=== PATIENT | female | born 2000 | race American Indian/Alaskan Native ===

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

== ENCOUNTER 2019-03-04 22:43 | Emergency (ER) | payer SELFPAY ==
[2019-03-04] MEDS ORDERED: IPRATROPIUM/ALBUTEROL SULFATE 3 ML AMPUL.NEB IH ONE (22:58)
[2019-03-04] MEDS ORDERED: ALBUTEROL 2.5 MG/3 ML NEBU IH ONE (23:12)
[2019-03-04] MEDS ORDERED: predniSONE 20 MG TAB PO ONE (23:12)
[2019-03-04 23:51] LABS: Basophils % (Auto) 0.4 % (0.0-1.8); Eosinophils # (Auto) 0.6 K/mm3 (0.0-0.4); Eosinophils % (Auto) 5.8 % (0.0-4.3); Hematocrit 40.7 % (30.3-42.9); Hemoglobin 13.6 gm/dl (10.1-14.3); Lymphocytes # (Auto) 2.3 K/mm3 (1.2-5.4); Mean Corpuscular HGB Conc 34 % (30-34); Mean Corpuscular Volume 85 fl (79-97); Monocytes # (Auto) 0.7 K/mm3 (0.0-0.8); Monocytes % (Auto) 6.7 % (0.0-7.3); Platelet Count 403 K/mm3 (140-440); Red Blood Count 4.82 M/mm3 (3.65-5.03); Red Cell Distribution Width 16.1 % (13.2-15.2)
--- NOTE | 2019-03-04 23:56 | XRay Report ---
CHEST 1 VIEW 2316 INDICATION / CLINICAL INFORMATION: SOB. COMPARISON: 12/06/2018 FINDINGS: SUPPORT DEVICES: None HEART / MEDIASTINUM: No significant abnormality. LUNGS / PLEURA: Density laterally in the lung bases is related to overlying soft tissue. No areas of consolidation are seen. No pneumothorax. ADDITIONAL FINDINGS: No significant additional findings. IMPRESSION: No significant acute abnormality Signer Name: Shaun Tse MD Signed: 03/04/2019 11:51 PM Workstation Name: [id number]
[2019-03-05 00:11] LABS: BUN/Creatinine Ratio 10; Blood Urea Nitrogen 7 mg/dL (7-17); Calcium 9.9 mg/dL (8.4-10.2); Hemolysis Index 7
[2019-03-05] MEDS ORDERED: ALBUTEROL 2.5 MG/3 ML NEBU IH ONE (01:46)
[2019-03-05 02:33] VITALS: BP 144/71
--- NOTE | 2019-03-05 02:37 | Emergency Department Report ---
HPI - General Chief Complaint: Adult Asthma Time Seen by Provider: 03/04/19 23:01 - HPI HPI: 19-year-old -[place] female presents to the emergency department from home with a complaint of shortness of breath, wheezing, coughing that she says is an asthma exacerbation. Overall, the patient says that this has been going on for the past few months since she moved to [place] in October. She does not have any primary care physician. She does not have any albuterol inhaler, nebulizer or any medications for treatment. She denies being a tobacco smoker or any knee or illicit drug use. No recent travel or sick contacts at home. ED Past Medical Hx - Past Medical History Previous Medical History?: Yes Hx Asthma: Yes Additional medical history: eczema - Surgical History Past Surgical History?: No - Social History Smoking Status: Never Smoker Substance Use Type: None - Medications Home Medications: Home Medications Medication Instructions Recorded Confirmed Last Taken Type ALBUTEROL Inhaler (OR & NICU) 1 puff IH Q4-6H PRN #1 inha 11/17/18 Unknown Rx [ProAir HFA Inhaler] Budesonide/Formoterol Fumarate 10.2 gm IH DAILY #1 hfa.aer.ad 11/17/18 Unknown Rx [Symbicort 160-4.5 Mcg Inhaler] Montelukast [Singulair] 10 mg PO QPM #14 tablet 11/17/18 Unknown Rx ALBUTEROL NEB's [Proventil 0.083% 2.5 mg IH TID PRN #90 neb 12/06/18 Unknown Rx NEBS] Loratadine 10 mg PO DAILY 30 Days #30 capsule 12/06/18 Unknown Rx Prednisone [predniSONE 10 mg 10 mg PO .TAPER #1 tab.ds.pk 12/06/18 Unknown Rx (6-Day Pack, 21 Tabs)] ALBUTEROL Inhaler (OR & NICU) 2 puff IH QID PRN #1 device 03/05/19 Unknown Rx [ProAir HFA Inhaler] Benzonatate [Tessalon Perles] 100 mg PO Q8HR #30 capsule 03/05/19 Unknown Rx predniSONE [Deltasone] 20 mg PO BID #10 tab 03/05/19 Unknown Rx ED Review of Systems ROS: Stated complaint: ASTHMA, EDI Other details as noted in HPI Comment: All other systems reviewed and negative Constitutional: denies: chills, fever Eyes: denies: eye pain, vision change ENT: denies: ear pain, throat pain Respiratory: cough, shortness of breath, wheezing Cardiovascular: denies: chest pain, palpitations, edema Gastrointestinal: denies: abdominal pain, vomiting Genitourinary: denies: dysuria, discharge Musculoskeletal: denies: back pain, arthralgia Skin: denies: rash, lesions Neurological: denies: headache, weakness Physical Exam - Physical Exam Vital Signs: Vital Signs 03/04/19 03/04/19 03/04/19 22:45 22:51 23:05 Temperature 99.3 F 99.1 F Pulse Rate 117 H 112 H Pulse Rate [ Anterior] Respiratory 22 26 H Rate Respiratory Rate [Anterior] Blood Pressure 137/95 Blood Pressure 137/83 [Left] O2 Sat by Pulse 95 97 Oximetry 03/04/19 03/04/19 03/04/19 23:06 23:15 23:31 Temperature Pulse Rate 119 H 101 H Pulse Rate [ Anterior] Respiratory 21 16 Rate Respiratory Rate [Anterior] Blood Pressure 134/77 Blood Pressure [Left] O2 Sat by Pulse 95 95 97 Oximetry 03/04/19 03/04/19 03/05/19 23:45 23:48 00:00 Temperature Pulse Rate 100 H 93 H Pulse Rate [ 94 H Anterior] Respiratory 15 9 L Rate Respiratory 15 Rate [Anterior] Blood Pressure 134/77 131/68 Blood Pressure [Left] O2 Sat by Pulse 95 100 Oximetry 03/05/19 03/05/19 03/05/19 00:30 00:45 01:00 Temperature Pulse Rate 109 H 109 H 108 H Pulse Rate [ Anterior] Respiratory 17 17 16 Rate Respiratory Rate [Anterior] Blood Pressure 140/83 140/83 132/78 Blood Pressure [Left] O2 Sat by Pulse 94 96 95 Oximetry 03/05/19 03/05/19 03/05/19 01:15 01:30 01:45 Temperature Pulse Rate 111 H 101 H 111 H Pulse Rate [ Anterior] Respiratory 22 22 22 Rate Respiratory Rate [Anterior] Blood Pressure 140/83 137/84 137/84 Blood Pressure [Left] O2 Sat by Pulse 94 95 95 Oximetry 03/05/19 03/05/19 02:01 02:27 Temperature Pulse Rate 88 Pulse Rate [ 94 H Anterior] Respiratory 13 Rate Respiratory 15 Rate [Anterior] Blood Pressure 144/71 Blood Pressure [Left] O2 Sat by Pulse 100 Oximetry Physical Exam: GENERAL: The patient is well-developed well-nourished. HENT: Normocephalic. Atraumatic. Patient has moist mucous membranes. EYES: Extraocular motions are intact. NECK: Supple. Trachea is midline. CHEST/LUNGS: Moderate wheezing throughout the chest. There is some mild tachypnea but no accessory muscle use. A dry cough is heard during examination. There is no respiratory distress noted. HEART/CARDIOVASCULAR: Regular. There is mild tachycardia. There is no murmur. ABDOMEN: Abdomen is soft, nontender. Patient has normal bowel sounds. There is no abdominal distention. SKIN: Skin is warm and dry. NEURO: The patient is awake, alert, and oriented. The patient is cooperative. The patient has no focal neurologic deficits. Normal speech. MUSCULOSKELETAL: There is no tenderness or deformity. There is no limitation range of motion. There is no evidence of acute injury. ED Course Vital Signs 03/04/19 03/04/19 03/04/19 22:45 22:51 23:05 Temperature 99.3 F 99.1 F Pulse Rate 117 H 112 H Pulse Rate [ Anterior] Respiratory 22 26 H Rate Respiratory Rate [Anterior] Blood Pressure 137/95 Blood Pressure 137/83 [Left] O2 Sat by Pulse 95 97 Oximetry 03/04/19 03/04/19 03/04/19 23:06 23:15 23:31 Temperature Pulse Rate 119 H 101 H Pulse Rate [ Anterior] Respiratory 21 16 Rate Respiratory Rate [Anterior] Blood Pressure 134/77 Blood Pressure [Left] O2 Sat by Pulse 95 95 97 Oximetry 03/04/19 03/04/19 03/05/19 23:45 23:48 00:00 Temperature Pulse Rate 100 H 93 H Pulse Rate [ 94 H Anterior] Respiratory 15 9 L Rate Respiratory 15 Rate [Anterior] Blood Pressure 134/77 131/68 Blood Pressure [Left] O2 Sat by Pulse 95 100 Oximetry 03/05/19 03/05/19 03/05/19 00:30 00:45 01:00 Temperature Pulse Rate 109 H 109 H 108 H Pulse Rate [ Anterior] Respiratory 17 17 16 Rate Respiratory Rate [Anterior] Blood Pressure 140/83 140/83 132/78 Blood Pressure [Left] O2 Sat by Pulse 94 96 95 Oximetry 0903/05/19 03/05/19 01:15 01:30 01:45 Temperature Pulse Rate 111 H 101 H 111 H Pulse Rate [ Anterior] Respiratory 22 22 22 Rate Respiratory Rate [Anterior] Blood Pressure 140/83 137/84 137/84 Blood Pressure [Left] O2 Sat by Pulse 94 95 95 Oximetry 03/05/19 03/05/19 02:01 02:27 Temperature Pulse Rate 88 Pulse Rate [ 94 H Anterior] Respiratory 13 Rate Respiratory 15 Rate [Anterior] Blood Pressure 144/71 Blood Pressure [Left] O2 Sat by Pulse 100 Oximetry ED Medical Decision Making - Lab Data Result diagrams: 03/04/19 23:25 03/04/19 23:25 - Radiology Data Radiology results: image reviewed interpreted by me: Chest x-ray does not show any acute process. There are no pleural effusions, obvious pneumonia and there is no pneumothorax. - Medical Decision Making Presents with what appears to be an asthma exacerbation. It has been worse over the past week but otherwise she says she has had symptoms for the past few months as she does not have any medications for treatment and does not have a primary care physician. She presents with some moderate bronchospasm but does not appear in any respiratory distress. Labs were unremarkable. Chest x-ray did not show any pleural effusions, pneumothorax, pneumonia, focal cons olidation, or any other acute process. She was given steroids and breathing treatments with great improvement of her symptoms. She was able to ambulate without desaturation or increased work of breathing. She appears safe for discharge home at this time. She'll be given a prescription for steroids, albuterol inhaler and Tessalon Perles for cough. She was given referrals for primary care. She will return to the ER with any worsening of her symptoms or any acute distress. - Differential Diagnosis asthma, COPD, pneumonia, CHF Critical Care Time: No Critical care attestation.: If time is entered above; I have spent that time in minutes in the direct care of this critically ill patient, excluding procedure time. ED Disposition Clinical Impression: Asthma exacerbation Qualifiers: Asthma severity: unspecified severity Asthma persistence: unspecified Qualified Code(s): J45.901 - Unspecified asthma with (acute) exacerbation Disposition: DC-01 TO HOME OR SELFCARE Is pt being admited?: No Condition: Stable Instructions: Asthma (ED) Additional Instructions: Please follow up with a primary care physician in the next few days. Return to the emergency Department with any worsening or symptoms or any acute distress. Prescriptions: predniSONE [Deltasone] 20 mg PO BID #10 tab ALBUTEROL Inhaler (OR & NICU) [ProAir HFA Inhaler] 2 puff IH QID PRN #1 device PRN Reason: Shortness Of Breath Benzonatate [Tessalon Perles] 100 mg PO Q8HR #30 capsule Referrals: VASILIY MATTHEWS MD [Staff Physician] - 2-3 Days GOGO ADAMS MD [Staff Physician] - 2-3 Days [facility] [Outside] - 2-3 Days Time of Disposition: 02:37
== END 2019-03-05 02:48 | disposition home or self-care (01) ==
LOC: ED 22:43
DX: J45.901 Unspecified asthma with (acute) exacerbation (principal); Z79.899 Other long term (current) drug therapy
CPT/HCPCS: 36415; 71045; 80048; 85025; 94640; 99284; J7512; 94644